=== PATIENT | male | born 1945 | race Asian ===

== ENCOUNTER 2020-04-08 17:38 | Emergency (ER) | payer MEDICAID ==
[~2020-04-08] VITALS: Ht 165.1 cm; Wt 56.0 kg
[2020-04-08] MEDS ORDERED: FAMO20 PO (17:44)
[2020-04-08] MEDS ORDERED: LOSA25TA71 PO (17:44)
[2020-04-08] MEDS ORDERED: NACL1 PO (17:44)
[2020-04-08] MEDS ORDERED: FERR-89 PO (17:44)
[2020-04-08] MEDS ORDERED: KETOROLAC TROMETHAMINE 30 MG/ML VIAL IM ONE (18:30)
[2020-04-08 18:47] VITALS: BP 139/78
== END 2020-04-08 19:01 | disposition home or self-care (01) ==
LOC: EMS 17:39
DX: M16.0 Bilateral primary osteoarthritis of hip (principal); M19.071 Primary osteoarthritis, right ankle and foot; M19.072 Primary osteoarthritis, left ankle and foot; Z79.899 Other long term (current) drug therapy
CPT/HCPCS: 96372; 99283; J1885

== ENCOUNTER 2020-07-21 09:37 | Emergency (ER) | payer MEDICAID, OTHER ==
[~2020-07-21] VITALS: Ht 167.6 cm; Wt 61.4 kg
[~2020-07-21 09:37] MED LIST: FAMO20 PO; FERR-89 PO; LOSA25TA21 PO; NACL1 PO
[2020-07-21] MEDS ORDERED: NAPR-1193 PO (09:40)
[2020-07-21 12:05] VITALS: BP 148/73
== END 2020-07-21 12:24 | disposition home or self-care (01) ==
LOC: EMS 09:42
DX: M17.0 Bilateral primary osteoarthritis of knee (principal); Z76.0 Encounter for issue of repeat prescription; I10 Essential (primary) hypertension; Z79.899 Other long term (current) drug therapy
CPT/HCPCS: Z7502

== ENCOUNTER 2021-11-24 18:54 | Emergency (ER) | payer OTHER ==
[~2021-11-24] VITALS: Ht 165.1 cm; Wt 63.6 kg
[~2021-11-24 18:54] MED LIST changes: +LOSA-381 PO; -LOSA25TA21 PO; +NAPR-1193 PO
[2021-11-24 20:06] LABS: BASOPHILS % (AUTO) 0.5 % (0.0-2.0); HEMATOCRIT 38.1 % (41-53); HEMOGLOBIN 12.7 g/dL (13.5-17.5); LYMPHOCYTES # (AUTO) 1.1 K/uL (1.0-4.8); LYMPHOCYTES % (AUTO) 12.6 % (22.0-44.0); MEAN CORPUSCULAR HEMOGLOBIN 28.2 pg (26.0-34.0); MEAN CORPUSCULAR HGB CONC 33.2 G/dL (31.0-37.0); MEAN CORPUSCULAR VOLUME 85 fL (80-100); MONOCYTES % (AUTO) 10.6 % (2.0-9.0); NEUTROPHILS # (AUTO) 6.8 K/uL (1.8-7.7); NEUTROPHILS % (AUTO) 75.3 % (40.0-70.0); PLATELET COUNT (AUTO) 270 K/uL (150-450); RED BLOOD CELL COUNT(AUTO) 4.49 MIL/uL (4.50-5.90)
[2021-11-24 20:17] LABS: CALCIUM, TOTAL 8.8 mg/dL (8.8-10.5); CREATININE 1.48 mg/dL (0.60-1.30)
[2021-11-24 20:20] LABS: URIC ACID 5.8 mg/dL (2.6-7.2)
[2021-11-24] MEDS ORDERED: PredniSONE 20 MG TABLET PO ONE (20:30)
[2021-11-24] MEDS ORDERED: PRED-554 PO (21:05)
[2021-11-24 21:20] VITALS: BP 141/72
== END 2021-11-24 21:34 | disposition home or self-care (01) ==
LOC: EMS 18:57
DX: M10.9 Gout, unspecified (principal); E78.00 Pure hypercholesterolemia, unspecified; Z79.899 Other long term (current) drug therapy
CPT/HCPCS: 36415; 80048; 84550; 85025; 99283; J7512